=== PATIENT | male | born 1965 | race Caucasian/White ===

== ENCOUNTER 2018-07-20 10:42 | Observation (INO) | payer OTHER ==
--- NOTE | 2018-07-20 10:45 | ED ---
HPI Chest Pain - Allergy/Home Medications Allergies/Adverse Reactions: Allergies Allergy/AdvReac Type Severity Reaction Status Date / Time No Known Allergies Allergy Verified 07/20/18 10:46 PMH/Surg Hx/FS Hx/Imm Hx Previously Healthy: No Review of Systems Constitutional: Negative Eyes: Negative ENT: Negative Cardiovascular: Negative Respiratory: Negative Gastrointestinal: Negative Genitourinary: Negative Musculoskeletal: Negative Skin: Negative Neurological: Negative Psychological: Normal Physical Exam - Summary Physical Exam Summary: Alert, conversive, nontoxic appearing Skin: Warm, dry, no mottling, no rashes, no contusions HEENT: EOMI, PERRL, moist mucous membranes Neck: No masses on the neck, supple Respiratory: Clear to auscultation, breath sounds present, no rales, no rhonchi , no wheezes Cardiovascular: RRR, pulses are symmetrical in both lower and upper extremities Abdomen: Soft, non-tender Bowel Sounds: Present Musculoskeletal: No CVA tenderness, no obvious deformity, moving all extremities in a grossly normal manner Neurological: A&Ox3, CN II-XII Intact, moving all extremities symmetrically Psychiatric: Normal affect and mood Triage Information Reviewed: Yes Vital Signs Reviewed: Yes - Attestation Statements Document Initiated by Scribe: Yes Documenting Scribe: Alberto Hein Provider For Whom Scribe is Documenting (Include Credential): Justin Diaz MD Scribe Attestation: Alberto Thompson, scribed for Justin Diaz MD on 07/20/18 at 1048.
--- NOTE | 2018-07-20 10:50 | ED ---
Respiratory - HPI Summary HPI Summary: 53 y/o male presents to the ED c/o SOB for 4 days, worsening. Dyspnea at rest. Pt is audibly wheezing. Pt has a cough with CP and shooting pains to the spiritism with cough. Associated sx: [place], ABD pain in the R side feels "distended", bilateral LE edema, fevers. Pt does not use O2 at home. - History of Current Complaint Chief Complaint: EDRespiratoryDistress Stated Complaint: CHEST PAIN/SOB Hx Obtained From: Patient Onset/Duration: Lasting Days, Still Present Pain Intensity: 5 Character: Wheezing, Cough (Productive), Dyspnea at Rest Alleviating Factor(s): Nothing Associated Signs and Symptoms: Fever, SOB, Chest Pain, Edema, Wheezing, Chest Pain with Cough - Allergy/Home Medications Allergies/Adverse Reactions: Allergies Allergy/AdvReac Type Severity Reaction Status Date / Time No Known Allergies Allergy Verified 07/20/18 10:46 Home Medications: Home Medications Amphetamine MIXED SALT TAB* [Adderall TAB*] 30 mg PO DAILY 07/20/18 [History Confirmed 07/20/18] BuPROPion XL* [Bupropion XL*] 300 mg PO DAILY 07/20/18 [History Confirmed ] Naltrexone TAB* 50 mg PO DAILY 07/21/18 [History Confirmed 07/21/18] PMH/Surg Hx/FS Hx/Imm Hx Previously Healthy: No Cardiovascular History: Denies: Hx Congestive Heart Failure Respiratory History: Reports: Hx Pneumonia Infectious Disease History: No Infectious Disease History: Denies: Traveled Outside the [place] in Last 30 Days - Family History Known Family History: Positive: Unknown - Social History Occupation: Employed Full-time Lives: With Family Alcohol Use: Occasionally Review of Systems Positive: Fever Eyes: Negative ENT: Negative Positive: Chest Pain Positive: Shortness Of Breath, Cough, Other - wheezing Positive: Abdominal Pain Genitourinary: Negative Positive: Edema - pedal Skin: Negative Positive: Headache Psychological: Normal All Other Systems Reviewed And Are Negative: No Physical Exam - Summary Physical Exam Summary: Alert, conversive, nontoxic appearing Skin: Warm, dry, no mottling, no rashes, no contusions HEENT: EOMI, PERRL, moist mucous membranes Neck: No masses on the neck, supple Respiratory: Mild respiratory distress. Diffuse respiratory wheezing. Cardiovascular: RRR, pulses are symmetrical in both lower and upper extremities Abdomen: Soft, non-tender Bowel Sounds: Present Musculoskeletal: No CVA tenderness, no obvious deformity, moving all extremities in a grossly normal manner. Mild pedal edema noted. Neurological: A&Ox3, CN II-XII Intact, moving all extremities symmetrically Psychiatric: Normal affect and mood Triage Information Reviewed: Yes Vital Signs On Initial Exam: Initial Vitals Temp Pulse Resp BP Pulse Ox 100.4 F 110 24 167/88 95 07/20/18 10:42 07/20/18 10:42 07/20/18 10:42 07/20/18 10:42 07/20/18 10:42 Vital Signs Reviewed: Yes Diagnostics - Vital Signs Vital Signs Temp Pulse Resp BP Pulse Ox 07/20/18 10:42 100.4 F 110 24 167/88 95 - Laboratory Result Diagrams: 07/21/18 06:43 07/21/18 06:43 Lab Statement: Any lab studies that have been ordered have been reviewed, and results considered in the medical decision making process. - Radiology CXR Radiology Interpretation Completed By: Radiologist - BILATERAL INFILTRATES LEFT GREATER THAN RIGHT. - Additional Comments Diagnostic Additional Comments: EKG - 11:40 Sinus Tachycardia @ 104 BPM. Normal QRSD, QTC. Non specific ST T wave changes in I , aVL, V6. Normal axis. Disposition - Course Assessment/Plan: 53 y/o male c/o SOB for 4 days, worsening. Dyspnea at rest. Cough, CP with cough, fevers. Pt also c/o R side ABD pain. Breathing treatment given in ED course. EKG - 11:40 Sinus Tachycardia @ 104 BPM. Normal QRSD, QTC. Non specific ST T wave changes in I , aVL, V6. Normal axis. CXR shows BILATERAL INFILTRATES LEFT GREATER THAN RIGHT. Spoke with Dr. Brewer, who agreed to admit [place] [facility] [place] - Diagnoses Provider Diagnoses: COPD exacerbation, Right lower lobe pneumonia - Physician Notifications Discussed Care Of Patient With: Osito Brewer Time Discussed With Above Provider: 12:48 Instructed by Provider To: Admit As Inpatient Discharge - Sign-Out/Discharge Documenting (check all that apply): Patient Departure - Discharge Plan Condition: Stable Disposition: ADMITTED TO [facility] - Billing Disposition and Condition Condition: STABLE Disposition: Admitted to [facility] - Attestation Statements Document Initiated by Scribe: Yes Documenting Scribe: Alberto Hein Provider For Whom Scribe is Documenting (Include Credential): Nicky Diaz MD Scribe Attestation: I, Alberto Hein, scribed for Nicky Diaz MD on 07/22/18 at 1107. Scribe Documentation Reviewed: Yes Provider Attestation: The documentation as recorded by the Alberto lovelace accurately reflects the service I personally performed and the decisions made by me, Nicky Diaz MD
[2018-07-20] MEDS ORDERED: NS 0.9% 1000 ML* 1,000 ML IV ONE ×2 (11:09→13:12)
[2018-07-20] MEDS ORDERED: Magnesium Sulfate IV* 2 GM in NS 0.9% 100 ML* 100 ML IV ONE (11:10)
[2018-07-20] MEDS ORDERED: Ibuprofen TAB* 600 MG PO ONE (11:11)
[2018-07-20] MEDS ORDERED: Albuterol/Ipratropium NEB.SOL* Albuterol 2.5 MG/Ipratropium 0.5 MG 3 ML INH ONE ×2 (11:11→11:47)
[2018-07-20] MEDS ORDERED: methylPREDNISolone 125 MG* 2 ML VIAL IV ONE (11:11)
[2018-07-20] MEDS ORDERED: Acetaminophen TAB* 325 MG PO ONE (11:11)
[2018-07-20 11:36] LABS: ABS Basophils 0.1 10^3/ul (0-0.2); ABS Eosinophils 0.1 10^3/ul (0-0.6); ABS Lymphocytes 0.6 10^3/ul (1.0-4.8); ABS Monocytes 0.9 10^3/ul (0-0.8); ABS Nucleated RBC 0 10^3/ul; Eosinophil % 0.7 % (0-6); Hematocrit 38 % (42-52); Hemoglobin 13.3 g/dl (14.0-18.0); Lymphocyte % 6.7 % (25-47); Mean Corpuscular HGB Conc 35 g/dl (31-36); Mean Corpuscular Hemoglobin 35 pg (27-31); Mean Corpuscular Volume 101 fL (80-94); Mean Platelet Volume 7.9 um3 (7.4-10.4); Nucleated Red Blood Cells % 0; Platelet Count 211 10^3/ul (150-450); Red Blood Count 3.77 10^6/ul (4.00-5.40); Red Cell Distribution Width 14 % (10.5-15); White Blood Count 8.6 10^3/ul (3.5-10.8)
[2018-07-20 11:45] LABS: INR 1.11 (0.77-1.02)
[2018-07-20] MEDS ORDERED: Magnesium Sulfate 2 GM IV* 2 GM/50 ML BAG IV ONE (11:48)
[2018-07-20 11:55] LABS: EGFR Non-African American 74.1 (>60)
[2018-07-20] MEDS ORDERED: cefTRIAXone(*) 1 GM in NS 0.9% 50 ML* 50 ML IVPB ONE (12:26)
[2018-07-20] MEDS ORDERED: Azithromycin TAB* 250 MG PO ONE (12:26)
--- NOTE | 2018-07-20 12:35 | RAD ---
INDICATION: Fever wheezing and cough. COMPARISON: There are no relevant prior studies available for comparison. TECHNIQUE: A portable view of the chest was obtained. FINDINGS: Cardiac and mediastinal contours appear to be within normal limits. There are patchy infiltrates in the mid and lower lung bowens which are more prominent in the left lung. No pleural effusion is seen. IMPRESSION: BILATERAL INFILTRATES LEFT GREATER THAN RIGHT.
[2018-07-20] MEDS ORDERED: Acetaminophen TAB* 325 MG PO PRN (13:12)
[2018-07-20] MEDS ORDERED: Albuterol 2.5 MG/3 ML NEB.SOL* (0.083%) INH PRN ×2 (13:12→21:53)
[2018-07-20] MEDS ORDERED: NS 0.9% 1000 ML* 1,000 ML IV SCH (13:15)
[2018-07-20 14:44] LABS: Urine Appearance Clear; Urine Blood 1+ (Negative); Urine Color Yellow; Urine Ketones Negative (Negative); Urine Protein Negative (Negative); Urine Red Blood Cell Trace(0-2/hpf) (Absent); Urine Specific Gravity 1.011 (1.010-1.030); Urine Urobilinogen Negative (Negative); Urine White Blood Cell Trace(0-5/hpf) (Absent)
--- NOTE | 2018-07-20 15:03 | HP ---
CC: Dr. Santana * HISTORY AND PHYSICAL: DATE OF ADMISSION: 07/20/18 PRIMARY CARE PROVIDER: Dr. Santana ATTENDING PHYSICIAN WHILE IN HOSPITAL: Osito Brewer MD * (report dictated by Devan Adams NP) CHIEF COMPLAINT: 1. Cough. 2. Shortness of breath. HISTORY OF PRESENT ILLNESS: Mr. Pineda is a 53-year-old male patient. He carries a history of ADHD and depression. He comes into our ER today, stating last 5 days he had progressive worsening shortness of breath. He has had a cough that has been nonproductive. He just had said that he has been not feeling well. He has been aching particularly in his knees. He says this has been hurting. He says he has been having chills intermittently. He had a fever noted here. He denied having any nausea, vomiting, or abdominal pain. He has chest pain when he is coughing. He denies having any orthopnea or nocturnal dyspnea and denies having any weight gain. He says he has not had any recent sick contacts. He does admit to dyspnea on exertion and he does admit to having some shortness of breath. He presented to the ED today. He was evaluated and was found to have bilateral pneumonia based on chest x-ray. We were asked to evaluate for admission. PAST MEDICAL HISTORY: Significant for: 1. ADHD. 2. Depression. PAST SURGICAL HISTORY: Denied. HOME MEDICATIONS: Include: 1. Adderall 30 mg p.o. daily. 2. Bupropion 300 mg p.o. daily. I do see on [facility] that the patient was given a prescription for naltrexone [address] Santana. I have a call placed to him to clarify this. ALLERGIES TO MEDICATIONS: Include no known drug allergies. FAMILY HISTORY: He states both his parents in their 80s of old age. SOCIAL HISTORY: He does smoke 2 cigars a day. He states he drinks a 6 pack a day. He denied any recreational drug abuse to me. Surrogate decision maker is his significant other, Alice. REVIEW OF SYSTEMS: There is a documented fever here. He denied any significant weight change. There was no double vision. There was no ear discharge. He did admit to having a cough. Denied having any congestion or rhinorrhea. No sore throat. No thyroid enlargement. Denied having any chest pain, especially when he coughs. Denied having any abdominal pain. There was no nausea, no vomiting, no dysuria. There was no frequency, no seizure, no loss of consciousness. Review of 14 systems completed, all others negative. PHYSICAL EXAMINATION GENERAL: At this time, Mr. Pineda is a 53-year-old male patient. He is sitting in the ED stretcher. Does not appear to be in any acute distress. VITAL SIGNS: Blood pressure 132/79, pulse 98, respirations were 24, O2 saturation 93%, temperature initially was 100.4, it did go to 103. HEENT: Head: Atraumatic, normocephalic. Eyes: EOMs are intact. Sclerae are anicteric and not pale. NECK: Supple. Throat: Oral mucosa appears to be moist. No oropharyngeal erythema. LUNGS: He had wheezing noted bilaterally. Equal diaphragmatic expansion. HEART: Sounds S1, S2. He had a regular rate and rhythm. No murmurs, rubs, or gallops. ABDOMEN: Soft, flat, nontender. Bowel sounds are present. EXTREMITIES: Pulses were 2+ throughout. He had no peripheral edema. He is moving all 4 extremities with 5/5 strength. NEUROLOGIC: He is awake, alert, oriented x3. He had no gross focal deficits. SKIN: Intact. DIAGNOSTIC STUDIES/LABORATORY DATA: Labs today, WBC 8.6, RBC of 3.77, hemoglobin 13.3, hematocrit 38, platelet count of 211. The INR was 1.11. PTT is 30.4. Sodium was 129, potassium 3.7, chloride of 101, bicarb 19, BUN 12, creatinine 1.04, glucose 127, lactic 1.1, calcium 8.2, mag 1.9, total bili 0.4, AST 20, ALT 20, alk phos 60, albumin 3.6, TSH is 2.06. He had a chest x-ray obtained today. Under my review, I do appreciate bilateral infiltrate. Radiology read this as bilateral infiltrates, left greater than right. He had an EKG today. I do not have previous for comparison. Today, the EKG is showing a sinus tachycardia at a rate of 104. LVH is present. He had no ST elevation. He did have flatten T waves in lead 3 and AVF, again nonspecific T wave changes. Old medical records reviewed. ASSESSMENT AND PLAN: Mr. Pineda is a 53-year-old male patient coming into the ED today with complaints of cough, shortness of breath, not feeling well. On evaluation, he was found to have bilateral pneumonia. We were asked to evaluate for admission. He will be admitted under observation status for: 1. Pneumonia. At this point, I will go ahead and get a legionella antigen, strep pneumoniae antigen, sputum culture. He has a pretty significant wheeze on exam, so I will put him on steroids. We will continue him on nebulizers every 4 hours. P.r.n. albuterol has been ordered. We will continue Dulera. I have placed him on Rocephin and azithromycin. I have asked for 1 L of bolus. He did show signs of sepsis in the evidence that he had a fever of 103. He was tachycardiac and he is mildly tachypneic, but I do not see any signs of end- organ damage currently. We will continue to monitor. His lactic acid was stable and his blood cultures were sent by the ER. 2. Attention deficit hyperactivity disorder. Continue medications as prescribed. 3. Depression and anxiety. Continue medications as prescribed. 4. DVT prophylaxis. I will place the patient on heparin subcu. 5. Code status: Full code. 6. Fluid, electrolyte, nutrition: He can have a normal saline at 100 an hour for an additional liter. In addition to this, he will have a regular diet. TIME SPENT: Time spent on the admission was 60 minutes, greater than half of that time was spent [id number] with the patient, obtaining my history and physical, the other half of the time was spent going over the plan of care with the patient and implementing the plan of care. I did discuss the plan of care with my attending, Dr. Brewer, who is in agreement. DEVAN ADAMS, DARSHANA [id number]/[facility] #: [id number] AMANDA
[2018-07-20] MEDS: Albuterol/Ipratropium NEB.SOL* Albuterol 2.5 MG/Ipratropium 0.5 MG 3 ML INH SCH ×2 (15:07→19:34)
[2018-07-20] MEDS: predniSONE TAB* 20 MG PO SCH (15:17)
[2018-07-20] MEDS: Heparin VIAL(*) 5000 UNITS/ML VIAL (FIVE THOUSAND) SUBCUT SCH ×2 (15:17→23:23)
[2018-07-20] MEDS: Mometasone/Formoter 200/5 MDI INH SCH (19:34)
[2018-07-21] MEDS: Heparin VIAL(*) 5000 UNITS/ML VIAL (FIVE THOUSAND) SUBCUT SCH (05:37)
[2018-07-21 07:02] LABS: ABS Basophils 0 10^3/ul (0-0.2); ABS Eosinophils 0 10^3/ul (0-0.6); ABS Lymphocytes 0.4 10^3/ul (1.0-4.8); ABS Neutrophils 13.7 10^3/ul (1.5-7.7); ABS Nucleated RBC 0 10^3/ul; Eosinophil % 0 % (0-6); Hematocrit 39 % (42-52); Hemoglobin 13.6 g/dl (14.0-18.0); Lymphocyte % 2.6 % (25-47); Mean Corpuscular HGB Conc 35 g/dl (31-36); Mean Corpuscular Hemoglobin 35 pg (27-31); Mean Corpuscular Volume 101 fL (80-94); Mean Platelet Volume 7.7 um3 (7.4-10.4); Nucleated Red Blood Cells % 0; Platelet Count 237 10^3/ul (150-450); Red Blood Count 3.87 10^6/ul (4.00-5.40); Red Cell Distribution Width 14 % (10.5-15); White Blood Count 15.1 10^3/ul (3.5-10.8)
[2018-07-21 07:07] LABS: INR 1.03 (0.77-1.02)
[2018-07-21 07:24] LABS: EGFR Non-African American 83.3 (>60)
[2018-07-21] MEDS: Mometasone/Formoter 200/5 MDI INH SCH (07:48)
[2018-07-21 07:59] VITALS: BP 153/88
[2018-07-21] MEDS: predniSONE TAB* 20 MG PO SCH (08:29)
[2018-07-21] MEDS ORDERED: Amphetamine MIXED SALT TAB* 10 MG TAB PO SCH (09:00)
[2018-07-21] MEDS ORDERED: BuPROPion XL* 300 MG TAB.XL PO SCH (09:00)
[2018-07-21] MEDS ORDERED: cefTRIAXone VIAL(*) 1,000 MG in NS 0.9% 50 ML* 50 ML IVPB SCH (13:00)
[2018-07-21] MEDS ORDERED: Azithromycin IV(*) 500 MG in D5W 250 ML BAG* 250 ML IVPB SCH (13:30)
--- NOTE | 2018-07-22 05:39 | DS ---
CC: [facility] * DISCHARGE SUMMARY: DATE OF ADMISSION: 07/20/18 DATE OF DISCHARGE: 07/21/18 PRIMARY CARE PROVIDER: To be established with [facility]. PSYCHIATRIST: Dr. Santana. PRINCIPAL DIAGNOSIS: Bilateral pneumonia. SECONDARY DIAGNOSES: 1. Depression. 2. Attention deficit hyperactivity disorder. DISCHARGE MEDICATIONS: 1. Adderall 30 mg p.o. daily. 2. Bupropion 300 mg p.o. daily. 3. Naltrexone 50 mg p.o. daily. 4. Prednisone 40 mg p.o. daily x2 days, and 30 mg x2 days, and 20 mg x2 days, and 10 mg x2 days and stop. 5. Amlodipine 5 mg p.o. daily (noon). 6. Levofloxacin 500 mg p.o. daily x6 doses. 7. Albuterol 2 puffs inhaled q.4 hours p.r.n. shortness of breath. HOSPITAL COURSE: Mr. Pineda is a 53-year-old male, smoker of 2 cigars per day, who presents to the emergency room with complaints of cough and shortness of breath. The patient complained of 5 days of progressive worsening shortness of breath. He had a cough that has been nonproductive. He had been feeling unwell. In the ER, the patient was identified to have bilateral pneumonia on chest x-ray and for this, he was admitted to the hospitalist service. The patient states that on the day of discharge, he feels 1000% better. He states that he did not expect to improve as quickly as he did. He states that he does have some cough, but essentially no shortness of breath at this point. He feels like he can manage at home. The patient has no wheezing on exam. The patient will be discharged home to continue Levaquin x6 more days, a prednisone taper and will have an albuterol inhaler as needed for wheezing. The patient agrees to follow up in the [facility] for follow up as he does not have a primary care provider, but has only been following with a psychiatrist recently. On the day of discharge, the patient is awake, alert and oriented, sitting up in bed, in no acute distress. His vital signs revealed blood pressure of 153/88 , a pulse 71, respirations 14, temp 98.4, and an O2 sat of 96% on room air. His cardiac exam reveals a normal S1, S2 with a regular rate and rhythm. His lungs are clear bilaterally. Abdomen is soft, nontender, nondistended. FOLLOWUP CONCERNS: The patient is being discharged home today, 07/21/18. ACTIVITY LEVEL: As tolerated. DIET: Low-fat. CONDITION ON DISCHARGE: Stable. The patient is to follow up at [facility] on 07/23/18 at 10:30 a.m. The patient has been explained that he should return to the emergency room for any worsening shortness of breath or any other concerning symptoms. TIME SPENT: 25 minutes were spent discharging this patient. [id number]/[facility] #: [id number] MTDD
== END 2018-07-21 12:15 | disposition home or self-care (01) ==
LOC: ED 10:42 → MED 13:10 → INTOOBSV 13:10 → OBSVTOIN 07-21 11:00 → INTOOBSV 07-21 11:00
PROVIDERS: ADMIT Student in an Organized Health Care Education/Training Program; ATTEND Hospitalist
DX: F32.9 Major depressive disorder, single episode, unspecified (principal); F90.9 Attention-deficit hyperactivity disorder, unspecified type; R06.02 Shortness of breath; R07.9 Chest pain, unspecified; R50.9 Fever, unspecified; R06.2 Wheezing; R05 Cough
CPT/HCPCS: 36415; 71045; 80048; 80053; 81003; 81015; 83605; 83735; 84443; 85025; 85610; 85730; 87040; 87086; 87899; 93005; 94640; 99284; A9270-GY; G0378; J0456; J0696; J1644; J2930; J3475; J7512

== ENCOUNTER 2018-09-21 12:59 | Emergency (ER) | payer OTHER ==
[2018-09-21 13:19] VITALS: BP 196/119
--- NOTE | 2018-09-21 13:26 | UC ---
Shortness of Breath HPI - HPI Summary HPI Summary: Patient has had increasing shortness of breath for the past 2 months after being diagnosed with pneumonia. Over the past several weeks it has gotten significantly worse. He now complains of shortness of breath even at rest. He has some baseline swelling in his ankles but there is some question as to whether or not this is getting worse. He complains of orthopnea and is very easily dyspneic with very little exertion. He smokes a couple of cigars a day. No fever or CP. - History of Current Complaint Chief Complaint: UCRespiratory Stated Complaint: SOB Time Seen by Provider: 09/21/18 13:20 Hx Obtained From: Patient Onset/Duration: Gradual Onset, Lasting Weeks, Still Present Timing: Constant Current Severity: Moderate Dyspnea At: Rest Aggrevating Factors: Movement, Recumbent Position Alleviating Factors: Nothing Associated Signs & Symptoms: Positive: Cough (Nonproductive), Wheezing. Negative: Chest Pain Unrelated to Cough, Nasal Congestion - Allergy/Home Medications Allergies/Adverse Reactions: Allergies Allergy/AdvReac Type Severity Reaction Status Date / Time No Known Allergies Allergy Verified 09/21/18 13:12 PMH/Surg Hx/FS Hx/Imm Hx Cardiovascular History: Hypertension - Surgical History Surgical History: None - Family History Known Family History: Positive: Unknown - Social History Alcohol Use: Occasionally Alcohol Amount: a 6 pack a week Substance Use Type: None Smoking Status (MU): Current Every Day Smoker Type: Cigars Amount Used/How Often: a few cigars/ day - Immunization History Most Recent Influenza Vaccination: 2017 Most Recent Pneumonia Vaccination: pt not had pneumonia vaccine Review of Systems Constitutional: Fatigue Respiratory: Shortness Of Breath, Other - orthopnea Cardiovascular: Negative Gastrointestinal: Negative Genitourinary: Negative Musculoskeletal: Edema All Other Systems Reviewed And Are Negative: Yes Physical Exam Triage Information Reviewed: Yes Appearance: No Pain Distress, Obese, Other: - BREATHING HEAVILY Vital Signs: Initial Vital Signs Temp 98 F 09/21/18 13:15 Pulse 76 09/21/18 13:15 Resp 24 09/21/18 13:15 BP 196/119 09/21/18 13:15 Pulse Ox 93 09/21/18 13:15 Vital Signs Reviewed: Yes Eyes: Positive: Conjunctiva Clear ENT: Positive: Hearing grossly normal Neck: Positive: Supple Respiratory: Positive: Respiratory distress - INCREASED WOB, Decreased breath sounds - LEFT BASE Cardiovascular: Positive: Pulses Normal Abdomen Description: Positive: Soft, Distended - MILD DIFFUSE TENDER. Negative : CVA Tenderness (R), CVA Tenderness (L) Diagnostics - EKG Cardiac Rate: NL - 76BPM Cardiac Rhythm: Sinus: Normal Ectopy: None ST Segment: Normal Shortness of Breath Dx - Course Course Of Treatment: PT OFFERED TRANSPORT TO THE ED BY AMBULANCE BUT DECLINES. ADVISED THAT BY NOT TRAVELING IN A MONITORED SETTING HE COULD BE RISKING WORSENING OF HIS CONDITION THAT COULD POSE A THREAT TO HER LIFE, HEALTH AND MEDICAL SAFETY. HE VERBALIZES UNDERSTANDING AND CONTINUES TO DECLINE AMBULANCE TRANSFER. - Differential Dx/Diagnosis Provider Diagnoses: 1. SOB. 2. HYPERTENSIVE CRISIS Discharge - Sign-Out/Discharge Documenting (check all that apply): Patient Departure All imaging exams completed and their final reports reviewed: No Studies - Discharge Plan Condition: Guarded Disposition: TRANS HIGHER LVL OF CARE FAC Patient Education Materials: Hypertensive Crisis (ED), Shortness of Breath (ED) Referrals: Max MURPHY,Elder Hwang [Primary Care Provider] - If Needed Additional Instructions: GO DIRECTLY TO THE [facility] [place] FROM HERE FOR FURTHER EVALUATION. YOU HAVE DECLINED TRANSFER TO THE ED BY AMBULANCE. BE ADVISED THAT BY NOT TRAVELING IN A MONITORED SETTING YOU COULD BE RISKING WORSENING OF YOUR CONDITION THAT COULD POSE A THREAT TO YOUR LIFE, HEALTH AND MEDICAL SAFETY. - Billing Disposition and Condition Condition: GUARDED Disposition: Trans Higher Lvl of Care Fac
== END 2018-09-21 14:00 | disposition short-term general hospital (02) ==
LOC: UCEAST 12:59
DX: R06.02 Shortness of breath (principal); I10 Essential (primary) hypertension; F17.290 Nicotine dependence, other tobacco product, uncomplicated
CPT/HCPCS: 93005; 99211; G0463

== ENCOUNTER 2019-06-14 16:23 | Observation (INO) | payer SELFPAY ==
--- NOTE | 2019-06-14 17:43 | ED ---
Shortness of Breath - HPI Summary HPI Summary: Patient complains of progressive SOB 6 weeks. Denies fever, cough, sore throat , CP, N/V/D, abdominal pain, change in urine, change in BM. Patient has history of hypertension which is untreated. Patient also states history of left pleural effusion in August 2018 with 1.5 L drained from left lung. Patient states he feels like he has the same symptoms as then. Medical history is CHF, HTN, pleural effusion, prediabetic. Smoker for years, quit November 2018. Noncompliant with hypertension medication. - History of Current Complaint Chief Complaint: EDShortnessOfBreath Time Seen by Provider: 06/14/19 17:41 Hx Obtained From: Patient Onset/Duration: Gradual Onset, Lasting Weeks Current Severity: Moderate Dyspnea At: [facility] Associated Signs & Symptoms: Negative - Allergy/Home Medications Allergies/Adverse Reactions: Allergies Allergy/AdvReac Type Severity Reaction Status Date / Time No Known Allergies Allergy Verified 06/14/19 16:26 PMH/Surg Hx/FS Hx/Imm Hx Endocrine/Hematology History: Denies: Hx Diabetes Cardiovascular History: Reports: Hx Hypertension - no refills Denies: Hx Congestive Heart Failure Respiratory History: Reports: Hx Pneumonia Denies: Hx Asthma, Hx Chronic Obstructive Pulmonary Disease (COPD) History: Denies: Hx Renal Disease Sensory History: Denies: Hx Contacts or Glasses, Hx Hearing Aid Opthamlomology History: Denies: Hx Contacts or Glasses EENT History: Denies: Hx Deafness Neurological History: Denies: Hx Dementia Psychiatric History: Denies: Hx Autism Infectious Disease History: No Infectious Disease History: Denies: Traveled Outside the [place] in Last 30 Days - Family History Known Family History: Positive: Unknown Negative: Cardiac Disease, Hypertension, Diabetes - Social History Alcohol Use: Occasionally Alcohol Amount: a 6 pack a week Substance Use Type: Reports: None Smoking Status (MU): Current Every Day Smoker Type: Cigars Amount Used/How Often: a few cigars/ day Review of Systems Constitutional: Negative Eyes: Negative ENT: Negative Cardiovascular: Negative Positive: Shortness Of Breath Gastrointestinal: Negative Genitourinary: Negative Musculoskeletal: Negative Skin: Negative Neurological: Negative Psychological: Normal All Other Systems Reviewed And Are Negative: Yes Physical Exam - Summary Physical Exam Summary: Patient has expiratory wheezes bilaterally. No rales noticed. Regular rate and rhythm. Abdomen soft nontender. Mild pitting edema on bilateral extremities. Triage Information Reviewed: Yes Vital Signs On Initial Exam: Initial Vitals Temp Pulse Resp BP Pulse Ox 97.8 F 95 22 164/98 94 06/14/19 16:26 06/14/19 16:26 06/14/19 16:26 06/14/19 16:26 06/14/19 16:26 Vital Signs Reviewed: Yes Appearance: Positive: Well-Appearing Skin: Positive: Warm Head/Face: Positive: Normal Head/Face Inspection Eyes: Positive: Normal Neck: Positive: Supple Respiratory/Lung Sounds: Positive: Wheezes Cardiovascular: Positive: Normal Abdomen Description: Positive: Nontender Musculoskeletal: Positive: Normal Neurological: Positive: Normal Psychiatric: Positive: Normal AVPU Assessment: Alert - Amisha Coma Scale Best Eye Response: 4 - Spontaneous Best Motor Response: 6 - Obeys Commands Best Verbal Response: 5 - Oriented Coma Scale Total: 15 Diagnostics - Vital Signs Vital Signs Temp Pulse Resp BP Pulse Ox 06/14/19 16:26 97.8 F 95 22 164/98 94 - Laboratory Result Diagrams: 06/14/19 18:20 06/14/19 18:20 Lab Statement: Any lab studies that have been ordered have been reviewed, and results considered in the medical decision making process. Course/Dx - Course Course Of Treatment: Patient complains of progressive SOB 6 weeks. Denies fever, cough, sore throat, CP, N/V/D, abdominal pain, change in urine, change in BM. Patient has history of hypertension which is untreated. Patient also states history of left pleural effusion in August 2018 with 1.5 L drained from left lung. Patient states he feels like he has the same symptoms as then. Medical history is CHF, HTN, pleural effusion, prediabetic. Smoker for years, quit November 2018. Initial respiratory rate 22, initial O2 sats 94%. Improved after DuoNeb 2. Chest x-ray unremarkable. EKG sinus rhythm, no change from prior. CTA chest negative. BNP 157. Potassium 3.4. Patient given 40 meq potassium by mouth. Lactic 4.6. Lactic resolved after 1 L normal saline to 1.7. Initial BP readings within normal limits, then elevated into SBP 200s. Hydralazine 5 mg IV administered twice with no significant improvement. Labetalol 20 mg administered with no significant change in blood pressure. - Diagnoses Provider Diagnoses: COPD exacerbation, Hypertensive urgency Discharge - Sign-Out/Discharge Documenting (check all that apply): Patient Departure Patient Received Moderate/Deep Sedation with Procedure: No - Discharge Plan Condition: Fair Disposition: ADMITTED TO [facility] Prescriptions: predniSONE TAB* [Deltasone 20 MG TAB*] 40 mg PO DAILY 5 Days #10 tab Referrals: Max MURPHY,Elder Hwang [Primary Care Provider] - - Billing Disposition and Condition Condition: FAIR Disposition: Admitted to [facility]
[2019-06-14] MEDS ORDERED: Albuterol/Ipratropium NEB.SOL* Albuterol 2.5 MG/Ipratropium 0.5 MG 3 ML INH ONE (17:46)
[2019-06-14 18:36] LABS: ABS Basophils 0.1 10^3/ul (0-0.2); ABS Eosinophils 0.4 10^3/ul (0-0.6); ABS Lymphocytes 1.2 10^3/ul (1.0-4.8); ABS Monocytes 0.5 10^3/ul (0-0.8); ABS Neutrophils 5.1 10^3/ul (1.5-7.7); Hematocrit 40 % (42-52); Lymphocyte % 16.2 %; Mean Corpuscular HGB Conc 35 g/dL (31-36); Mean Corpuscular Hemoglobin 38 pg (27-31); Mean Corpuscular Volume 108 fL (80-94); Mean Platelet Volume 7.6 fL (7.4-10.4); Nucleated Red Blood Cells % 0.1; Platelet Count 292 10^3/uL (150-450); Red Blood Count 3.68 10^6 /uL (4.18-5.48); Red Cell Distribution Width 15 % (10-15); White Blood Count 7.3 10^3/uL (3.5-10.8)
[2019-06-14 18:47] LABS: Albumin 3.8 g/dL (3.2-5.2); Albumin/Globulin Ratio 1.4 (1-3); BUN/Creatinine Ratio 9.7 (8-20); C Reactive Protein 7.81 mg/L (<8.01); EGFR African American 81.2 (>60); EGFR Non-African American 67.1 (>60); Globulin 2.8 g/dL (2-4); Potassium 3.4 mmol/L (3.5-5.0); Total Bilirubin 0.3 mg/dL (0.2-1.0); Total Protein 6.6 g/dL (6.4-8.9)
[2019-06-14] MEDS ORDERED: Albuterol 0.5% CONC NEB.SOL* 5 MG/ML 20 ml BOT INH ONE (18:47)
[2019-06-14] MEDS ORDERED: predniSONE TAB* 20 MG PO ONE (18:48)
[2019-06-14 18:49] LABS: Troponin I 0.02 ng/mL (<0.04)
[2019-06-14] MEDS ORDERED: NS 0.9% 1000 ML** 1,000 ML IV ONE (19:49)
[2019-06-14] MEDS ORDERED: Iohexol 350* (CONTRAST) 500 ML MDV IV ONE (20:03)
[2019-06-14] MEDS ORDERED: Iodixanol* (CONTRAST) 320 MG/ML 100 ML SDV IV ONE (21:05)
[2019-06-14] MEDS ORDERED: hydrALAZINE IV* 20 MG/ML VIAL IV SLOW PU ONE (22:14)
[2019-06-15] MEDS ORDERED: hydrALAZINE IV* 20 MG/ML VIAL IV SLOW PU ONE ×2 (00:43→05:42)
[2019-06-15] MEDS ORDERED: Labetalol IV* 5 MG/ML 20 ML VIAL IV PUSH ONE (01:49)
[2019-06-15] MEDS ORDERED: Potassium Chlor TAB* 20 MEQ TAB.ER PO ONE (01:52)
[2019-06-15] MEDS ORDERED: Albuterol HFA INHALER* 8 gm MDI INH ONE (02:33)
--- NOTE | 2019-06-15 05:41 | HP ---
History of Present Illness - History of Present Illness Reason for Visit: Shortness of breath. History of Present Illness: 54yoM with PMHx CHF, HTN, here due to shortness of breathx6 weeks, rib pain. His breathing has gotten so bad that he can't manage himself so came to ER. Denies any chest pain. Patient stopped taking his BP medications as he says it doesn't work. Past Medical History Obesity with a BMI of 35. Depression. ADHD. Congestive Heart failure s/p 1.5L taken out in August 2018. HTN No diagnosis of COPD. Past Surgical History None Family History Mother and Father were both in their late 70s when they . No medical problems. Social History The patient quit smoking in August 2018 prior to that used to smoke 2 to 3 cigars a day. He drinks 6 beers a week. He denies any recreational drug use. 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 Surrogate decision maker is his significant other, Alice Marte. Phone number is [phone]. Review of Systems - Measurements Intake and Output: Intake and Output Last 24 Hours 06/12/19 06/13/19 06/14/19 06/15/19 06:59 06:59 06:59 06:59 Weight 274 lb - Review of Systems Constitutional Symptoms: Positive: Weight Gain Negative: Fever Dermatology: Negative: Rash Pulmonary: Positive: Cough, Wheezing Cardiology: Positive: Shortness of Breath, Swelling of Ankles, Edema Negative: Chest Pain, Palpitations Gastroenterology: Negative: Abdominal Pain, Nausea, Vomiting Objective Vital Signs - 8 hr 06/14/19 06/14/19 06/14/19 21:41 21:57 22:00 Pulse Rate 78 82 75 Respiratory 19 24 21 Rate Blood Pressure 204/115 238/146 (mmHg) O2 Sat by Pulse 94 96 95 Oximetry 06/14/19 06/14/19 06/14/19 22:12 22:34 22:51 Pulse Rate 77 81 80 Respiratory 21 26 Rate Blood Pressure 215/131 223/133 (mmHg) O2 Sat by Pulse 91 96 96 Oximetry 06/14/19 06/14/19 06/14/19 23:00 23:12 23:14 Pulse Rate 78 79 88 Respiratory 21 22 18 Rate Blood Pressure 192/108 (mmHg) O2 Sat by Pulse 94 94 96 Oximetry 06/15/19 06/15/19 06/15/19 00:00 00:12 00:29 Pulse Rate 75 81 73 Respiratory 26 17 19 Rate Blood Pressure 202/119 205/114 (mmHg) O2 Sat by Pulse 96 93 94 Oximetry 06/15/19 06/15/19 06/15/19 01:00 01:12 01:21 Pulse Rate 67 69 70 Respiratory 26 22 23 Rate Blood Pressure 196/124 183/128 (mmHg) O2 Sat by Pulse 95 95 95 Oximetry 06/15/19 06/15/19 06/15/19 01:34 01:42 02:00 Pulse Rate 69 72 70 Respiratory 23 24 29 Rate Blood Pressure 191/115 197/120 (mmHg) O2 Sat by Pulse 95 95 96 Oximetry 06/15/19 06/15/19 06/15/19 02:13 02:40 02:56 Pulse Rate 72 73 73 Respiratory 21 20 24 Rate Blood Pressure 181/105 198/110 181/99 (mmHg) O2 Sat by Pulse 94 96 94 Oximetry 06/15/19 06/15/19 06/15/19 03:00 03:10 03:25 Pulse Rate 74 75 72 Respiratory 24 22 24 Rate Blood Pressure 180/97 195/96 (mmHg) O2 Sat by Pulse 94 94 95 Oximetry 06/15/19 06/15/19 06/15/19 03:40 03:55 04:00 Pulse Rate 72 74 70 Respiratory 26 22 22 Rate Blood Pressure 174/100 184/108 (mmHg) O2 Sat by Pulse 96 95 92 Oximetry 06/15/19 06/15/19 06/15/19 04:10 04:26 04:41 Pulse Rate 68 68 67 Respiratory 22 21 20 Rate Blood Pressure 170/105 173/104 184/92 (mmHg) O2 Sat by Pulse 96 95 94 Oximetry Oxygen Devices in Use Now: None Eyes: No Scleral Icterus, PERRLA Ears/Nose/Mouth/Throat: NL Teeth, Lips, Gums, Clear Oropharnyx, Mucous Membranes Moist Neck: Trachea Midline Respiratory: - - Diffuse wheezing. Cardiovascular: NL Sounds; No Murmurs; No JVD, RRR Abdominal: NL Sounds; No Tenderness; No Distention - Obese abdomen. Extremities: - - Trace bipedal edema. Skin: No Rash or Ulcers Neurological: Alert and Oriented x 3, NL Sensation, NL Gait, NL Muscle Strength and Tone Nutrition: Taking PO's Result Diagrams: 06/14/19 18:20 06/14/19 18:20 Diagnostic Imaging: CT Angiography Chest With Contrast IMPRESSION: 1. No evidence of pulmonary embolic disease in the main, segmental and proximal subsegmental branches. However the distal subsegmental pulmonary arteries are difficult to assess. 2. No pulmonary consolidation. Linear opacities located in lung bases which may represent areas of atelectasis and/or scarring. 3. Ectasia of the ascending aorta with an AP length of 4.1 cm. Recommend followup study in 6 months to a year. Previous CT study from 09/21/2018 shows the AP length of the ascending aorta to measure approximately 4.1 cm. 4. Resolution of the left pleural effusion and associated areas of atelectasis. EKG Data: Shows sinus rhythm at 84bpm. When compared to previous EKG anterior lead ST changes have resolved. Assess/Plan/Problems-Billing Assessment: - Patient Problems (1) Respiratory failure Current Visit: Yes Status: Acute Code(s): J96.90 - RESPIRATORY FAILURE, UNSP , UNSP W HYPOXIA OR HYPERCAPNIA SNOMED Code(s): 207383943 Comment: Likely COPD exacerbation given the CT read negative for any CHF or PE. Start steroids, nebs, azithromycin. Will avoid fluroquinolones given aortic aneurysm. Pulmonary consultation for possible PFT. (2) Hypertensive urgency Current Visit: Yes Status: Acute Code(s): I16.0 - HYPERTENSIVE URGENCY SNOMED Code(s): 569538725 Comment: Start IV hydralazine PRN for SBP>160. Restart Home meds. (3) Ascending aorta dilatation Current Visit: Yes Status: Acute Code(s): I77.810 - THORACIC AORTIC ECTASIA SNOMED Code(s): 142049794 Comment: As noted in CT scan. Repeat CT Scan in 6 months. (4) Heart failure Current Visit: Yes Status: Acute Code(s): I50.9 - HEART FAILURE, UNSPECIFIED SNOMED Code(s): 78611487 Comment: Currently not in failure. Monitor for now. (5) DVT prophylaxis Current Visit: No Status: Acute Code(s): TRU0697 - SNOMED Code(s): 214310475 Comment: SCDs.
[2019-06-15] MEDS ORDERED: hydrALAZINE IV* 20 MG/ML VIAL IV SLOW PU PRN (06:58)
[2019-06-15] MEDS ORDERED: Enoxaparin(*) 40 MG/0.4 ML SYR SUBCUT SCH (07:00)
[2019-06-15] MEDS ORDERED: amLODIPine TAB* 5 MG PO SCH (07:00)
[2019-06-15] MEDS ORDERED: Albuterol/Ipratropium NEB.SOL* Albuterol 2.5 MG/Ipratropium 0.5 MG 3 ML INH PRN ×2 (07:01→19:59)
[2019-06-15 07:38] LABS: ABS Lymphocytes 0.6 10^3/ul (1.0-4.8); ABS Monocytes 0.3 10^3/ul (0-0.8); ABS Neutrophils 8.8 10^3/ul (1.5-7.7); Hematocrit 40 % (42-52); Hemoglobin 14.3 g/dL (14.0-18.0); Lymphocyte % 5.7 %; Mean Corpuscular HGB Conc 36 g/dL (31-36); Mean Corpuscular Hemoglobin 38 pg (27-31); Mean Corpuscular Volume 108 fL (80-94); Mean Platelet Volume 7.7 fL (7.4-10.4); Platelet Count 290 10^3/uL (150-450); Red Blood Count 3.74 10^6 /uL (4.18-5.48); Red Cell Distribution Width 14 % (10-15); White Blood Count 9.8 10^3/uL (3.5-10.8)
[2019-06-15 07:50] LABS: BUN/Creatinine Ratio 13.8 (8-20); Calcium 8.7 mg/dL (8.6-10.3); EGFR African American 100.5 (>60)
[2019-06-15] MEDS ORDERED: Azithromycin 500 mg/250 ml NS 500 MG/250 ML BAG IVPB SCH (08:00)
[2019-06-15] MEDS: methylPREDNISolone SOD 40 MG* 1 ML VIAL IV SCH ×2 (08:11→21:35)
[2019-06-15] MEDS ORDERED: Isosorbide Mononitrate ER TAB* 60 MG PO SCH (09:00)
[2019-06-15] MEDS: BuPROPion XL* 300 MG TAB.XL PO SCH (10:28)
[2019-06-15] MEDS: Azithromycin 500 mg/250 ml NS 500 MG/250 ML BAG IVPB SCH (10:28)
[2019-06-15] MEDS: Losartan TAB* 25 MG PO SCH (12:43)
[2019-06-15] MEDS: Nicotine PATCH 14 MG/24 HR* PATCH TRANSDERM SCH (12:43)
[2019-06-15] MEDS ORDERED: Perflutren Lipid Microsphere* 3 ML VIAL ONE (14:26)
[2019-06-15] MEDS ORDERED: Acetaminophen TAB* 325 MG PO PRN (15:24)
[2019-06-15] MEDS: Amphetamine MIXED SALT TAB* 10 MG TAB PO SCH (15:43)
--- NOTE | 2019-06-15 16:16 | ECHO ---
*[facility]* [place] [address] Fax #: [phone] Transthoracic Echocardiogram Patient: Tomas Pineda : 1965 Study Date: 06/15/2019 Age: 54 Gender: M HR: 70 bpm Height: 70 in /177.8 cm BSA: 2.39 m^2 Weight: 273.4 lb /124.3 kg BMI: 39.3 kg/m^2 *Sex Worker Or Escort: * Linda Ayoub RD *Referring Physician: * Hayley Wolff *Reading Physician: * Bianca Castillo MD Indications: SOB. Congestive Heart Failure. History: Obesity. Risk factors: Current tobacco use. Hypertension. Conclusions Summary: 1. Procedure narrative: Image quality was suboptimal. 2. Left ventricle: The cavity size is normal. Wall thickness is mildly increased. Systolic function is vigorous. The estimated ejection fraction is 60-65%. 3. Right ventricle: Systolic function is normal. 4. All valves show good functioin. 5. Tricuspid valve: There is no significant regurgitation, trace. 6. Compared with prior echocardiogram of 09/22/18, ejection fraction is stable, no longer see right ventricle dillatation and right ventricle function no longer recuded. Prior study showed trace AI, mitral regurgitation, tricuspid regurgitation. Aorta previously mildly dilated. Study data: Transthoracic echocardiogram. Procedure: Transthoracic echocardiography was performed. Image quality was suboptimal. Intravenous Definity , 4 mlswas administered. Image enhancement administered by Complete 2D, spectral Doppler, and color flow Doppler. Patient status: Inpatient. Patient room number: 410-1. Rhythm: Normal sinus rhythm. Findings Left ventricle: The cavity size is normal. Wall thickness is mildly increased. Systolic function is vigorous. The estimated ejection fraction is 60-65%. Wall motion is normal; there are no regional wall motion abnormalities. There is no consistent Doppler evidence of clinically significant diastolic dysfunction. Right ventricle: Not well visualized. The cavity size is normal. Wall thickness is normal. Systolic function is normal. Ventricular septum: Well visualized. Left atrium: Well visualized. The atrium is normal in size. Right atrium: Well visualized. The atrium is normal in size. Atrial septum: Well visualized. Mitral valve: Well visualized. The leaflets are mildly thickened. No echocardiographic evidence for prolapse. There is no evidence of stenosis. There is no significant regurgitation. Aortic valve: Not well visualized. The valve is trileaflet. The leaflets are normal thickness. There is no evidence of stenosis. There is no significant regurgitation. Tricuspid valve: Well visualized. The leaflets are normal thickness. There is no evidence of stenosis. There is no significant regurgitation, trace. Pulmonic valve: Well visualized. The leaflets are normal thickness. There is no evidence of stenosis. There is no significant regurgitation. Aorta: The aorta is not visualized. Pericardium: There is no pericardial effusion. No evidence of pleural fluid accumulation. Pulmonary arteries: Not well visualized. The main pulmonary artery is normal-sized. Systemic veins: Well visualized. Pulmonary veins: Visualization of the pulmonary venous anatomy is incomplete, but a significant abnormality is unlikely. Measurements Left ventricle Value Ref Right atrium Value Ref FOREIGN, LAX 4.8 cm 4.2 - SI dim, ES 5.2 cm 3.4 - 5.3 5.8 ML dim, ES, A4C 4.3 cm 2.6 - 4.4 ESD, LAX 3.8 cm 2.5 - SI dim, ES, A4C (H) 5.8 cm 3.4 - 5.3 4.0 SI dim/bsa, ES, A4C 2.4 cm/m^2 1.8 - 3.0 FS, LAX (L) 22 % 25 - 43 PW, ED, LAX (H) 1.2 cm 0.6 - Aortic valve Value Ref 1.0 Lee diam, ED 2.2 cm --------- FS (L) 22 % 25 - 43 Lee diam/bsa, ED 0.9 cm/m^2 --------- Mid-wall FS 9 % -------- Peak v, S 1.87 m/sec --------- PW, ED (H) 1.2 cm 0.6 - VTI, S 33.2 cm --------- 1.0 Mean grad, S 7.0 mm Hg --------- PW/ID, ED 0.26 -------- Peak grad, S 14.0 mm Hg --------- E', lat lee, TDI (L) 6.6 cm/sec >=10.0 LVOT/AV, VTI ratio 0.92 - -------- E/e', lat lee, TDI 13 -------- E', med lee, TDI (L) 6.0 cm/sec >=7.0 Mitral valve Value R ef E/e', med lee, TDI 15 -------- Peak E 0.88 m/sec ---- ----- E', avg, TDI 6.3 cm/sec -------- Peak A 0.83 m/sec ---- ----- E/e', avg, TDI 14 <=14 Decel time 169 ms - -------- Peak grad, D 3.1 mm Hg --------- LVOT Value Ref Peak E/A ratio 1.1 --------- Peak dominic, S 1.55 m/sec -------- VTI, S 30.6 cm -------- Pulmonic valve Value Ref Peak grad, S 10 mm Hg -------- Peak v, S 1.32 m/sec --------- Mean grad, S 5 mm Hg -------- Peak grad, S 7.0 mm Hg --------- Ventricular septum Value Ref Aortic root Value Ref IVS, ED (H) 1.4 cm 0.6 - Root diam 3.5 cm <4.4 1.0 Root max diam, ED 3.5 cm <4.4 Right ventricle Value Ref Ascending aorta Value Ref FOREIGN, LAX 3.6 cm -------- AAo AP diam, S 3.3 cm --------- FOREIGN minor ax, A4C 2.9 cm 1.9 - AAo AP diam/bsa, S 1.4 cm/m^2 --------- mid 3.5 Left atrium Value Ref ML dim, A4C 3.9 cm -------- SI dim, A4C 5.7 cm -------- Legend: (L) and (H) jose values outside specified reference range. Prepared and electronically signed by Bianca Castillo MD 06/15/2019 16:16
--- NOTE | 2019-06-15 18:01 | PN ---
Subjective Date of Service: 06/15/19 Interval History: Patient sitting in bed on assessment. He is visibly agitated as evidence by pressure speech and raising his voice. He reports that he does not believe that there is no fluid on his lungs as he feels the same as he did in 2018 and at that time he had 1.5 L take from lung. Discussed results of CTA and patient demanding to see Dr Palacio. Patient reports shortness of breath at rest and with exertion. It should be mentioned patient reports smoking 5 to 6 cigars a day. Reports occasional nonproductive cough. Denies chest pain or palpitations. Denies fever or chills. Denies anxiety explaining he is only anxious because we all "ask the same questions". Objective Active Medications: Acetaminophen (Tylenol Tab*) 650 mg PO Q4H PRN PRN Reason: PAIN Last Admin: 06/15/19 15:43 Dose: 650 mg Albuterol/Ipratropium (Duoneb (Albuterol 2.5 Mg/Ipratropium 0.5 Mg)) 1 neb INH Q4H PRN PRN Reason: SOB/WHEEZING Amlodipine Besylate (Norvasc Tab*) 10 mg PO DAILY@0900 [facility] Amphetamine/Dextroamphetamine (Adderall Tab*) 30 mg PO BID@0700,1500 [facility] Last Admin: 06/15/19 15:43 Dose: 30 mg Bupropion HCl (Bupropion Xl*) 300 mg PO DAILY [facility] Last Admin: 06/15/19 10:28 Dose: 300 mg Furosemide (Lasix Tab*) 20 mg PO DAILY [facility] Hydralazine HCl (Apresoline Iv*) 5 mg IV SLOW PU Q6H PRN PRN Reason: Systolic Bp Greater Than:160 Azithromycin (Zithromax 500 Mg/250 Ml) 500 mg in 250 mls @ 250 mls/hr IVPB Q24HR@1000 [facility] Last Admin: 06/15/19 10:28 Dose: 250 mls/hr Losartan Potassium (Cozaar Tab*) 50 mg PO DAILY [facility] Last Admin: 06/15/19 12:43 Dose: 50 mg Methylprednisolone Sodium Succinate (Solu-Medrol 40 Mg) 40 mg IV Q12H [facility] Last Admin: 06/15/19 08:11 Dose: 40 mg Nicotine (Nicotine Patch 14 Mg/24 Hr*) 1 patch TRANSDERM DAILY [facility] Last Admin: 06/15/19 12:43 Dose: 1 patch Pharmacy Profile Note (Nicotine Patch Removal Note*) 1 note FOLLOW UP 2100 [facility] Pneumococcal Polyvalent Vaccine (Pneumococcal Vac 23-Polyvalent*) 0.5 ml IM .ONCE ONE Stop: 06/16/19 09:01 Vital Signs - 8 hr 06/15/19 06/15/19 11:15 17:12 Temperature 97.1 F 97.3 F Pulse Rate 73 72 Respiratory 22 24 Rate Blood Pressure 147/76 166/89 (mmHg) O2 Sat by Pulse 97 98 Oximetry Oxygen Devices in Use Now: None Appearance: NAD Eyes: No Scleral Icterus Ears/Nose/Mouth/Throat: Clear Oropharnyx, Mucous Membranes Moist Neck: NL Appearance and Movements; NL JVP Respiratory: Symmetrical Chest Expansion and Respiratory Effort, Clear to Auscultation Cardiovascular: NL Sounds; No Murmurs; No JVD, RRR, No Edema Abdominal: NL Sounds; No Tenderness; No Distention Lymphatic: No Cervical Adenopathy Extremities: No Clubbing, Cyanosis Skin: No Rash or Ulcers Neurological: Alert and Oriented x 3 Nutrition: Taking PO's Result Diagrams: 06/15/19 07:28 06/15/19 07:28 Additional Lab and Data: Laboratory Results - last 24 hr 06/14/19 06/14/19 06/14/19 18:20 18:20 18:20 WBC 7.3 RBC 3.68 L Hgb 14.0 Hct 40 L MCV 108 H MCH 38 H MCHC 35 RDW 15 Plt Count 292 MPV 7.6 Neut % (Auto) 70.4 Lymph % (Auto) 16.2 [place] % (Auto) 7.2 Eos % (Auto) 5.0 Baso % (Auto) 1.2 Absolute Neuts (auto) 5.1 Absolute Lymphs (auto) 1.2 Absolute Monos (auto) 0.5 Absolute Eos (auto) 0.4 Absolute Basos (auto) 0.1 Absolute Nucleated RBC 0.0 Nucleated RBC % 0.1 Sodium 139 Potassium 3.4 L Chloride 102 Carbon Dioxide 26 Anion Gap 11 BUN 11 Creatinine 1.13 Est GFR ( Amer) 81.2 Est GFR (Non-Af Amer) 67.1 BUN/Creatinine Ratio 9.7 Glucose 112 H Lactic Acid 4.6 H* Calcium 9.0 Total Bilirubin 0.30 AST 23 ALT 33 Alkaline Phosphatase 85 Troponin I 0.02 C-Reactive Protein 7.81 B-Natriuretic Peptide Total Protein 6.6 Albumin 3.8 Globulin 2.8 Albumin/Globulin Ratio 1.4 06/14/19 06/15/19 06/15/19 18:20 00:02 07:28 WBC 9.8 RBC 3.74 L Hgb 14.3 Hct 40 L MCV 108 H MCH 38 H MCHC 36 RDW 14 Plt Count 290 MPV 7.7 Neut % (Auto) 90.6 Lymph % (Auto) 5.7 [place] % (Auto) 3.4 Eos % (Auto) 0.0 Baso % (Auto) 0.3 Absolute Neuts (auto) 8.8 H Absolute Lymphs (auto) 0.6 L Absolute Monos (auto) 0.3 Absolute Eos (auto) 0.0 Absolute Basos (auto) 0.0 Absolute Nucleated RBC 0.0 Nucleated RBC % 0.0 Sodium Potassium Chloride Carbon Dioxide Anion Gap BUN Creatinine Est GFR ( Amer) Est GFR (Non-Af Amer) BUN/Creatinine Ratio Glucose Lactic Acid 1.7 Calcium Total Bilirubin AST ALT Alkaline Phosphatase Troponin I C-Reactive Protein B-Natriuretic Peptide 157 H Total Protein Albumin Globulin Albumin/Globulin Ratio 06/15/19 07:28 WBC RBC Hgb Hct MCV MCH MCHC RDW Plt Count MPV Neut % (Auto) Lymph % (Auto) [place] % (Auto) Eos % (Auto) Baso % (Auto) Absolute Neuts (auto) Absolute Lymphs (auto) Absolute Monos (auto) Absolute Eos (auto) Absolute Basos (auto) Absolute Nucleated RBC Nucleated RBC % Sodium 138 Potassium 4.0 Chloride 107 Carbon Dioxide 24 Anion Gap 7 BUN 13 Creatinine 0.94 Est GFR ( Amer) 100.5 Est GFR (Non-Af Amer) 83.0 BUN/Creatinine Ratio 13.8 Glucose 135 H Lactic Acid Calcium 8.7 Total Bilirubin AST ALT Alkaline Phosphatase Troponin I C-Reactive Protein B-Natriuretic Peptide Total Protein Albumin Globulin Albumin/Globulin Ratio Microbiology and Other Data: . Diagnostic Imaging: CT Angiography Chest With Contrast IMPRESSION: 1. No evidence of pulmonary embolic disease in the main, segmental and proximal subsegmental branches. However the distal subsegmental pulmonary arteries are difficult to assess. 2. No pulmonary consolidation. Linear opacities located in lung bases which may represent areas of atelectasis and/or scarring. 3. Ectasia of the ascending aorta with an AP length of 4.1 cm. Recommend followup study in 6 months to a year. Previous CT study from 09/21/2018 shows the AP length of the ascending aorta to measure approximately 4.1 cm. 4. Resolution of the left pleural effusion and associated areas of atelectasis. EKG Data: Shows sinus rhythm at 84bpm. When compared to previous EKG anterior lead ST changes have resolved. Assess/Plan/Problems-Billing Assessment: 54 yr old male with pmh of obesity, depression, adhd, chf, htn, no official diagnosis of COPD; who presented to ed with sob x 6 weeks - Patient Problems (1) SOB (shortness of breath) Comment: - Suspected secondary to COPD exacerbation although patient has never been officially diagnosed. - Per [employer] patient was referred to Dr Palacio in 2018 after hospitalization and he did see her, but did not follow up and did not have PFTs completed. - Cont steriods, abx, nebs - Smoking cessation (2) COPD (chronic obstructive pulmonary disease) Comment: - See above (3) Noncompliance Comment: - Patient reports he does not take his BP medications because "they don't work" and he also stopped prescribed inhalers as they also did not work. - Discussed importance of complaince (4) CHF (congestive heart failure) Comment: - Hx of CHF and pleural effusion - BMP 157 - Echo ordered (5) HTN (hypertension) Current Visit: No Status: Acute Code(s): I10 - ESSENTIAL (PRIMARY) HYPERTENSION SNOMED Code(s): 45202159 Comment: - See above (6) DVT prophylaxis Comment: SCDs. Attending: Cristobal Oconnell
[2019-06-15 18:09] LABS: Urine Benzodiazepine Screen None Detected (None Detect); Urine Opiates Screen None Detected (None Detect)
[2019-06-15] MEDS ORDERED: Albuterol/Ipratropium NEB.SOL* Albuterol 2.5 MG/Ipratropium 0.5 MG 3 ML INH SCH (19:00)
[2019-06-15] MEDS ORDERED: Metoprolol Tartrate TAB* 25 MG PO SCH ×2 (21:00)
[2019-06-15] MEDS ORDERED: Nicotine Patch Removal NOTE FOLLOW UP SCH (21:00)
[2019-06-15] MEDS ORDERED: Nicotine* 2MG (FRUIT FLAVOR) GUM PO PRN (21:01)
[2019-06-16 08:01] LABS: ABS Lymphocytes 0.8 10^3/ul (1.0-4.8); ABS Monocytes 0.5 10^3/ul (0-0.8); ABS Neutrophils 10.2 10^3/ul (1.5-7.7); Hematocrit 39 % (42-52); Hemoglobin 13.5 g/dL (14.0-18.0); Lymphocyte % 6.7 %; Mean Corpuscular HGB Conc 34 g/dL (31-36); Mean Corpuscular Hemoglobin 37 pg (27-31); Mean Corpuscular Volume 109 fL (80-94); Platelet Count 283 10^3/uL (150-450); Red Blood Count 3.62 10^6 /uL (4.18-5.48); Red Cell Distribution Width 15 % (10-15); White Blood Count 11.5 10^3/uL (3.5-10.8)
[2019-06-16 08:29] LABS: BUN/Creatinine Ratio 17.5 (8-20); Calcium 8.6 mg/dL (8.6-10.3); EGFR African American 96.9 (>60); EGFR Non-African American 80.1 (>60); Potassium 4.2 mmol/L (3.5-5.0)
[2019-06-16] MEDS: Nicotine PATCH 14 MG/24 HR* PATCH TRANSDERM SCH ×2 (08:30→12:24)
[2019-06-16] MEDS: BuPROPion XL* 300 MG TAB.XL PO SCH (08:32)
[2019-06-16] MEDS: methylPREDNISolone SOD 40 MG* 1 ML VIAL IV SCH (08:32)
[2019-06-16] MEDS: Losartan TAB* 25 MG PO SCH (08:32)
[2019-06-16] MEDS: Amphetamine MIXED SALT TAB* 10 MG TAB PO SCH (08:41)
[2019-06-16 08:44] VITALS: BP 148/90
[2019-06-16] MEDS ORDERED: Furosemide TAB* 20 MG PO SCH (09:00)
[2019-06-16] MEDS ORDERED: Metoprolol Tartrate TAB* 25 MG PO SCH (09:00)
[2019-06-16] MEDS ORDERED: amLODIPine TAB* 5 MG PO SCH (09:00)
[2019-06-16] MEDS ORDERED: Pneumococcal *Vac Polyvalent 0.5 ML VIAL IM ONE (09:00)
[2019-06-16] MEDS: Azithromycin 500 mg/250 ml NS 500 MG/250 ML BAG IVPB SCH (12:06)
--- NOTE | 2019-06-16 22:12 | DS ---
CC: [facility] * DISCHARGE SUMMARY: DATE OF ADMISSION: 06/15/19 DATE OF DISCHARGE: 06/16/19 PRIMARY CARE PROVIDER: Destiney Recio. ATTENDING PHYSICIAN: Dr. Oconnell * (dictated by Alicia Zuniga NP) PRIMARY DIAGNOSES: 1. Shortness of breath. 2. Chronic obstructive pulmonary disease. 3. Noncompliance. 4. Congestive heart failure. 5. Hypertension. 6. Tobacco abuse. SECONDARY DIAGNOSES: 1. Depression. 2. Attention deficit hyperactivity disorder. STUDIES WHILE IN THE HOSPITAL: 1. Chest x-ray: No evidence for active cardiopulmonary disease. 2. EKG: Sinus rhythm. 3. Chest/thorax CTA: No evidence of pulmonary embolism, cardiopulmonary embolic disease in the main, segmental and proximal segment branches. However, the distal segmental pulmonaries are difficult to assess. No pulmonary consolidation. Linear opacities located in lung bases which may represent areas of atelectasis and/or scaring. Ectasia of the ascending aorta with an AP length of 4.[address] follow[address] CT in 6 months to a year. Previous CT study from 09/21/18 shows the AP length of the ascending aorta to measure approximately 4.1 cm. Resolution of left pulmonary effusion and associated areas of atelectasis. 4. Transthoracic echo: Impression: Image: Left ventricle: The cavity size is normal. Wall thickness is mildly increased. Systolic function is decreased. The estimated ejection fraction is 60% to 65%. Right ventricle: Systolic function is normal. All valves showed good function. Tricuspid valve : There is no significant regurgitation, trace. Compared to prior echo on 09/22, ejection fraction is stable, no longer seen right ventricle dilatation and right ventricular function no longer reduced. Prior study showed trace AI, mitral regurgitation, tricuspid regurgitation. Aorta previously mildly dilated. DISCHARGE HOME MEDICATIONS: Continued home medications: 1. Naltrexone 50 mg p.o. daily. 2. Bupropion XL 300 mg p.o. daily. 3. Adderall 30 mg p.o. b.i.d. 4. Amlodipine 10 mg p.o. daily. 5. Metoprolol tartrate 25 mg p.o. b.i.d. 6. Lasix 20 mg p.o. daily. 7. Albuterol HFA inhaler 2 puff inhalations q.4 hours p.r.n. New home medications: 1. Losartan 50 mg p.o. daily. 2. Azithromycin 250 mg p.o. daily x3 days. 3. Prednisone taper. HISTORY OF PRESENT ILLNESS/HOSPITAL COURSE: Mr. Pineda is a 54-year-old male with past medical history significant for CHF, hypertension, depression, ADHD; who presented to the emergency department on 06/14/19 with complaints of shortness of breath x6 weeks. Please see history and physical dictated by Lawrence Montalvo MD for complete summary of events leading up to hospitalization, but in short, the patient presented to the emergency room with the above mentioned complaints and was noted to be hypertensive. The patient admitted that he stopped taking his BP medications as he says they were not working. Given his complaints of shortness of breath, the patient had a CT angiogram and results as mentioned above. The patient also had an EKG which was sinus rhythm at rate of 84. The patient had a troponin while in the emergency department which was unremarkable. Given the patient's complaints of shortness of breath and his elevated blood pressure with the highest reading being in the 200s systolically , he was admitted to the hospital for further evaluation and treatment. While in the hospital, the patient's blood pressure medications were restarted and additional blood pressure medications in the form of losartan was added to his regimen. He was also treated for possible COPD exacerbation, given his significant smoking history of 5 cigars per day. The patient was treated with antibiotics, prednisone, nebulizers. The patient reports improvement in breathing. Given the patient's history of pleural effusion and possibly CHF, a transthoracic echo was ordered, results as above. Today on assessment, the patient reports improvement in breathing. The patient stable for discharge home. REVIEW OF SYSTEMS: The patient reports mild shortness of breath that has improved since admission. He reports it is mostly when sitting or bending over due to abdominal girth. The patient denies cough, fever, chills, chest pain, palpitations. A 14-point review of systems was completed and all others were negative. PHYSICAL EXAMINATION: V ital Signs: Temp 97.7, HR 24, RR 20, O2 saturation 95% on room air, BP 148/90. General: Mr. Pineda is a 54-year-old male who is lying in bed. Appears to be in no acute distress. Appears stated age. HEENT: EOMs intact. Oral mucosa is moist without lesion. Posterior pharynx is clear. Neck: Supple. No lymphadenopathy. Cardiac: S1, S2 present. No murmurs, rubs, or gallops. Regular rate and rhythm. Respiratory: Lungs are clear to auscultation. No wheezes, rhonchi, or rubs. Abdomen: The patient's abdomen is large as he has truncal obesity. The patient 's abdomen is nontender, no rigidity, no rebound tenderness. Bowel sounds were normoactive. Extremities: No edema. No clubbing or cyanosis. Pedal pulses 2+ bilaterally. Musculoskeletal: No pain or deformities. Skin: Grossly intact with no rashes or lesions. Neuro: Grossly intact. No focal deficits or weakness. DIAGNOSTIC STUDIES/LAB DATA: WBC 11.5, hemoglobin 13.5, hematocrit 39, platelets 238,000. Sodium 138, potassium 4.2, chloride 107, carbon dioxide 23, BUN 17, creatinine 0.97, glucose 147. DISCHARGE PLAN/FOLLOWUP: 1. Respiratory failure: As mentioned above, the patient experienced shortness of breath while in the emergency room, therefore was admitted for evaluation and treatment. The patient never required supplemental O2. The patient has received steroids, nebulizer, azithromycin. The patient has improved. The patient had the CTA which was unremarkable for pulmonary disease. The patient had an echo which was unremarkable. I have recommended that the patient continue his azithromycin. I sent the patient with a prescription for azithromycin and prednisone. I have instructed the patient to stop smoking. I have also referred the patient back to Dr. Palacio who he had seen previously for possible PFTs. 2. Hypertensive urgency. As mentioned above, the patient's blood pressure was systolically as high as 200 in the emergency department. He admitted to not taking the blood pressure medications. The patient was restarted on blood pressure medication with the addition of losartan. The patient's blood pressure is now 146 systolically. I have discussed at length the risks of untreated hypertension and the patient states understanding. The patient will be referred to [facility] for followup. 3. Ascending aorta dilatation. The patient has dilatation of the ascending aorta on the CT scan. The patient needs a repeat CT in 6 months. I will defer this to the patient's primary care or [facility] to refer him for this followup. 4. Heart failure. The patient is currently not in heart failure. The patient should continue his home medications the same. 5. Depression. The patient should continue his medications the same. 6. Attention deficit hyperactivity disorder: Patient should continue his Ritalin. 7. Followup: The patient is referred to [facility] for followup next week. The patient has also been referred to Dr. Palacio. It should be mentioned that the patient was referred to [facility] on the previous admission, but did not attend his appointment. The patient also followed up with Dr. Palacio after his previous admission and made 1 followup but did not follow through with his pulmonary testing. I would recommend that the patient see Dr. Palacio within the next month for possible PFTs and further pulmonary evaluation. 8. Education: The patient was educated on signs and symptoms of new or worsening conditions and when to return to the emergency department. The patient stated understanding. This is a summarized report of a complex medical history and hospital stay. For further details, please see the entire medical record. TIME SPENT: Approximately 35 minutes were spent on this discharge, greater than half that time was spent [id number] with the patient discussing discharge plans and instructions. This plan was discussed with my attending, Dr. Oconnell, who is in agreement with my plan of care. Reviewed by ALICIA ZUNIGA NP 06/26/19 @ [id number]/CPS #: [id number] AMANDA
== END 2019-06-16 15:00 | disposition home or self-care (01) | DRG 189 ==
LOC: ED 16:23 → UNDOADMOB 06-15 06:50 → OBSVTOIN 06-15 06:50 → MED 06-15 06:50 → INTOOBSV 06-15 06:50 → MED 06-15 06:50 → OBSVTOIN 06-15 12:00 → INTOOBSV 06-15 12:00 → OBSVTOIN 06-16 12:00 → UNDODISOB 06-16 15:00
PROVIDERS: ADMIT Hospitalist; ATTEND Internal Medicine
DX: J96.90 Respiratory failure, unspecified, unspecified whether with hypoxia or hypercapnia (principal); J44.1 Chronic obstructive pulmonary disease with (acute) exacerbation; I11.0 Hypertensive heart disease with heart failure; I16.0 Hypertensive urgency; I10 Essential (primary) hypertension; I77.819 Aortic ectasia, unspecified site; I50.9 Heart failure, unspecified; F32.9 Major depressive disorder, single episode, unspecified; F90.9 Attention-deficit hyperactivity disorder, unspecified type; F17.290 Nicotine dependence, other tobacco product, uncomplicated; E66.9 Obesity, unspecified; Z91.14 Patient's other noncompliance with medication regimen; Z68.35 Body mass index [BMI] 35.0-35.9, adult
CPT/HCPCS: 36415; 71046; 71275; 80048; 80053; 80307; 83605; 83880; 84484; 85025; 86140; 87040; 90732; 93005; 93306; 94660; 99284; A9270-GY; C8929; J0360; J0456; J2920; J7512; Q9967

== ENCOUNTER 2019-07-30 23:11 | Emergency (ER) | payer SELFPAY ==
[2019-07-30] MEDS ORDERED: diPHENhydraMINE IV* 50 MG/ML 1 ml VIAL (BENADRYL) IM ONE (23:21)
[2019-07-30] MEDS ORDERED: Haloperidol INJ IV/IM* 5 MG/ML AMP IM ONE (23:21)
[2019-07-30] MEDS ORDERED: LORazepam INJ* 2 MG/ML 1 ML VIAL IM ONE (23:21)
[2019-07-30] MEDS ORDERED: Lorazepam PYXIS KEY ONE (23:29)
[2019-07-30] MEDS ORDERED: LORazepam INJ* 2 MG/ML 1 ML VIAL ONE (23:30)
--- NOTE | 2019-07-30 23:32 | ED ---
Substance Abuse/Use - HPI Summary HPI Summary: Pt is a 54 y/o M presenting to the ED brought in by EMS and [place] [employer] on a 2208. LEVEL 5 CAVEAT: Pts full hx and physical limited d/t intoxication. The pt was found by [place] [employer] by the old [employer] [place], unconscious and surrounded by liquor bottles. He did not know how he got there, or where he was, and was very combative with the police. - History Of Current Complaint Chief Complaint: EDSubstanceAbuse Stated Complaint: 2208 PER EMS Time Seen by Provider: 07/30/19 23:19 Hx Obtained From: EMS, Other: - [employer] Hx From Patient Unobtainable Due To: Other - intoxication Onset/Duration of Drug/ETOH Abuse: Hours Overdose Characteristics: Oral Timing Of Abuse: Binge Use Severity Initially: Moderate Severity Currently: Moderate Character: Angry, Stuporous Aggravating Factor(s): Nothing Alleviating Factor(s): Nothing Associated Signs And Symptoms: Agitated - Allergies/Home Medications Allergies/Adverse Reactions: Allergies Allergy/AdvReac Type Severity Reaction Status Date / Time No Known Allergies Allergy Verified 07/30/19 23:20 PMH/Surg Hx/FS Hx/Imm Hx Previously Healthy: No - LEVEL 5 CAVEAT: intoxication Endocrine/Hematology History: Denies: Hx Diabetes Cardiovascular History: Reports: Hx Congestive Heart Failure, Hx Hypertension Respiratory History: Reports: Hx Pneumonia Denies: Hx Asthma, Hx Chronic Obstructive Pulmonary Disease (COPD) History: Denies: Hx Renal Disease Sensory History: Reports: Hx Contacts or Glasses - reading Denies: Hx Deafness, Hx Hearing Aid, Hx Hearing Problem Opthamlomology History: Reports: Hx Contacts or Glasses - reading Neurological History: Denies: Hx Dementia Psychiatric History: Reports: Hx Attention Deficit Hyperactivity Disorder Denies: Hx Autism Infectious Disease History: Unable to Obtain/Confirm Infectious Disease History: Denies: Traveled Outside the [place] in Last 30 Days - Family History Known Family History: Negative: Cardiac Disease, Hypertension, Diabetes - Social History Alcohol Use: Weekly Alcohol Amount: 6 beers per week Substance Use Type: Reports: None Smoking Status (MU): Former Smoker Type: Cigars Amount Used/How Often: a few cigars/ day Length of Time of Smoking/Using Tobacco: 7 years Have You Smoked in the Last Year: Yes Review of Systems - ROS Summary Review of Systems Summary: LEVEL 5 CAVEAT: Full hx and physical unobtainable d/t intoxication. All Other Systems Reviewed And Are Negative: No Physical Exam - Summary Physical Exam Summary: Appearance: Intoxicated appearing obese man talking interminably but not answering questions or following commands. Skin: Warm, dry, no obvious rash Eyes: sclera anicteric, no conjunctival pallor ENT: mucous membranes moist, pharynx appears normal Neck: Supple, nontender Respiratory: Clear to auscultation, no signs of respiratory distress Cardiovascular: Normal S1, S2. No murmurs. Normal distal pulses in tibial and radial bilaterally. Abdomen: Soft, nontender, normal active bowel sounds present Musculoskeletal: No obvious signs of trauma, Strength/ROM Intact Neurological: Awake and alert, not answering questions appropriately Psychiatric: Pt is intoxicated Triage Information Reviewed: Yes Vital Signs On Initial Exam: Initial Vitals Temp Pulse Resp BP Pulse Ox 97.1 F 81 22 152/107 98 07/30/19 23:19 07/30/19 23:19 07/30/19 23:19 07/30/19 23:19 07/30/19 23:19 Vital Signs Reviewed: Yes Completion Of Physical Exam Limited Due To: Level 5 Diagnostics - Vital Signs Vital Signs Temp Pulse Resp BP Pulse Ox 07/30/19 23:19 97.1 F 81 22 152/107 98 - Laboratory Lab Statement: Any lab studies that have been ordered have been reviewed, and results considered in the medical decision making process. Course/Dx - Course Course Of Treatment: Pt is a 54 y/o M presenting to the ED brought in by EMS and [place] [employer] on a 2209. LEVEL 5 CAVEAT: Pts full hx and physical limited d/t intoxication. The pt was found by [place] [employer] by the old [employer] [place], unconscious and surrounded by liquor bottles. He did not know how he got there, or where he was, and was very combative with the police. On exam, the pt is intoxicated, obese, unable to answer questions appropriately, but is awake and alert. In the ED course, he was restrained d/t hostility and aggressive behaviors. He was given 2mg Lorazepam, 50mg Benadryl, and 10mg Haloperidol. Upon sobriety and waking up, pt will be d/c'ed with dx of alcohol intoxication. - Diagnoses Provider Diagnoses: Alcohol intoxication Discharge ED - Sign-Out/Discharge Documenting (check all that apply): Patient Departure Patient Received Moderate/Deep Sedation with Procedure: No - Discharge Plan Condition: Improved Disposition: HOME Patient Education Materials: Alcohol Intoxication (ED) Referrals: [facility] [Outside] Max MURPHY,Elder Hwang [Primary Care Provider] - - Billing Disposition and Condition Condition: IMPROVED Disposition: Home - Attestation Statements Document Initiated by Scribe: Yes Documenting Scribe: Nata Coronel Provider For Whom Myriam is Documenting (Include Credential): Uzair West MD. Scribe Attestation: Nata Thompson scribed for Uzair West MD. on 08/01/19 at 0515. Scribe Documentation Reviewed: Yes Provider Attestation: The documentation as recorded by the Nata lovelace accurately reflects the service I personally performed and the decisions made by Uzair reardon MD. Status of Scribe Document: Viewed
--- NOTE | 2019-07-31 09:42 | ED ---
Progress - Progress Note Progress Note: This pt is a sign out to Dr. Balbuena from Dr. West at shift change 0700 07/31/19 pending sobriety. Re-Evaluation - Re-Evaluation First Eval Re-Evaluation Time: 10:15 Change: Improved Comment: Pt was aroused and walked. He is clinically sober and will be discharged with the previous discharge plan from Dr. West. Course/Dx - Course Course Of Treatment: This pt is a sign out to Dr. Balbuena from Dr. West at shift change 0700 07/31/19 pending sobriety. - Diagnoses Provider Diagnoses: Alcohol intoxication Discharge ED - Sign-Out/Discharge Documenting (check all that apply): Patient Departure Patient Received Moderate/Deep Sedation with Procedure: No - Discharge Plan Condition: Improved Disposition: HOME Patient Education Materials: Alcohol Intoxication (ED) Referrals: [facility] [Outside] Max MURPHY,Elder Hwang [Primary Care Provider] - - Billing Disposition and Condition Condition: IMPROVED Disposition: Home - Attestation Statements Document Initiated by Myriam: Yes Documenting Scribe: Candelario Venegas Provider For Whom Myriam is Documenting (Include Credential): Uzair Balbuena MD Scribe Attestation: Candelario Thompson, scribed for Uzair Balbuena MD on 07/31/19 at 1101. Scribe Documentation Reviewed: Yes Provider Attestation: The documentation as recorded by the Candelario lovelace accurately reflects the service I personally performed and the decisions made by me, Uzair Balbuena MD Status of Scribe Document: Viewed
[2019-07-31 10:35] VITALS: BP 145/109
== END 2019-07-31 10:38 | disposition home or self-care (01) ==
LOC: ED 23:11
DX: F10.129 Alcohol abuse with intoxication, unspecified (principal); Z87.891 Personal history of nicotine dependence; I50.9 Heart failure, unspecified; I10 Essential (primary) hypertension; F90.9 Attention-deficit hyperactivity disorder, unspecified type
CPT/HCPCS: 96372; 99285; J1200; J1630; J2060

== ENCOUNTER 2023-04-29 12:10 | Observation (INO) ==
[2023-04-29] MEDS ORDERED: Labetalol IV 5 MG/ML 20 ml VIAL IV PUSH ONE ×3 (12:26→12:48)
[2023-04-29 12:48] LABS: ABS Eosinophils 0.2 10^3/uL (0.0-0.5); ABS Monocytes 0.6 10^3/uL (0.0-1.1); ABS Neutrophils 5.2 10^3/uL (1.5-7.6); ABS Nucleated RBC 0.02 10^3/ul; Eosinophil % 2.3 %; Hematocrit 49.8 % (38-53); Hemoglobin 16.6 g/dL (13.2-16.3); Lymphocyte % 13.8 %; Mean Corpuscular Hemoglobin 32.7 pg (27-33); Mean Corpuscular Hgb Conc 33.4 g/dL (31-36); Mean Corpuscular Volume 97.8 fL (80-97); Mean Platelet Volume 8.3 fL (7.5-11.2); Nucleated Red Blood Cells % 0.3 /100 WBC (0.0-0.4); Platelet Count 257 10^3/uL (150-450); Red Blood Count 5.09 10^6/uL (4.06-5.63); Red Cell Distribution Width 15.3 % (12-17); White Blood Count 6.9 10^3/uL (3.6-10.2)
[2023-04-29] MEDS ORDERED: Albuterol/Ipratropium NEB.SOL (2.5/0.5 MG) 3 ML NEB.SOLN INH ONE (12:49)
[2023-04-29 13:02] LABS: High Sens Troponin Baseline 26 pg/mL (<20)
[2023-04-29 13:23] LABS: ALT 27 U/L (7-52); AST 23 U/L (13-39); Albumin 4.3 g/dL (3.2-5.2); Albumin/Globulin Ratio 1.6 (1-3); Alkaline Phosphatase 68 U/L (35-149); Anion Gap 9 mmol/L (2-16); Blood Urea Nitrogen 25 mg/dL (6-24); CO2 Carbon Dioxide 28 mmol/L (22-32); Calcium 8.9 mg/dL (8.6-10.3); Chloride 103 mmol/L (101-111); Creatinine, Serum 1.52 mg/dL (0.67-1.17); Globulin 2.7 g/dL (2-4); Glucose 84 mg/dL (70-100); Magnesium 1.9 mg/dL (1.9-2.7); Potassium 4.3 mmol/L (3.5-5.0); Sodium 140 mmol/L (135-145); eGFR CKD-EPI 52.1 (>60)
[2023-04-29] MEDS ORDERED: Azithromycin 500 mg/250 ml NS 500 MG/250 ML BAG IVPB ONE (13:37)
[2023-04-29 13:56] LABS: High Sensitivity Troponin 1 Hr 26 pg/mL (<20)
[2023-04-29] MEDS ORDERED: Al Hydrox/Mg Hydrox/Simet LIQ 30 ML UDC PO PRN (14:29)
[2023-04-29] MEDS ORDERED: Albuterol/Ipratropium NEB.SOL (2.5/0.5 MG) 3 ML NEB.SOLN INH PRN (14:35)
[2023-04-29] MEDS: cefTRIAXone 1 gm/50 mL D5W 1 GM/50 ML BAG IV SCH (15:54)
[2023-04-29] MEDS: Enoxaparin 40 MG/0.4 ML SYR SUBCUT SCH (15:54)
[2023-04-29] MEDS ORDERED: Magnesium Sulfate 2 gm BAG 2 GM/50 ML BAG IVPB ONE (16:45)
[2023-04-29 16:47] LABS: Alcohol, S < 13 mg/dL (<13)
[2023-04-30 05:59] LABS: ABS Lymphocytes 0.4 10^3/uL (1.0-4.8); ABS Monocytes 0.2 10^3/uL (0.0-1.1); ABS Neutrophils 6.3 10^3/uL (1.5-7.6); Eosinophil % 0.1 %; Hematocrit 47.6 % (38-53); Lymphocyte % 6.3 %; Mean Corpuscular Hgb Conc 33.6 g/dL (31-36); Mean Corpuscular Volume 98.2 fL (80-97); Mean Platelet Volume 8.2 fL (7.5-11.2); Platelet Count 243 10^3/uL (150-450); Red Blood Count 4.85 10^6/uL (4.06-5.63); Red Cell Distribution Width 15.3 % (12-17)
[2023-04-30 06:24] LABS: Calcium 8.7 mg/dL (8.6-10.3); Creatinine, Serum 1.34 mg/dL (0.67-1.17); Magnesium 2.3 mg/dL (1.9-2.7); Potassium 4.7 mmol/L (3.5-5.0); eGFR CKD-EPI 60.6 (>60)
[2023-04-30] MEDS ORDERED: Sulfur Hexaflouride MICROSPHR 25 MG VIAL ONE (08:04)
[2023-04-30 13:13] LABS: C Reactive Protein 11.68 mg/L (<8.01)
[2023-04-30] MEDS ORDERED: Azithromycin 500 mg/250 ml NS 500 MG/250 ML BAG IVPB SCH (14:00)
[2023-04-30 15:01] VITALS: BP 143/80
[2023-04-30] MEDS: cefTRIAXone 1 gm/50 mL D5W 1 GM/50 ML BAG IV SCH (15:47)
[2023-04-30] MEDS: Enoxaparin 40 MG/0.4 ML SYR SUBCUT SCH (15:49)
== END 2023-04-30 18:05 | disposition home or self-care (01) ==
LOC: EDHOLD 12:10 → ED 12:10 → MEDTELE 16:28
PROVIDERS: ADMIT Internal Medicine; ATTEND Internal Medicine

== ENCOUNTER 2023-12-04 12:32 | Observation (INO) ==
[2023-12-04] MEDS ORDERED: Morphine 2 MG/ML SYRINGE IV ONE (14:10)
[2023-12-04] MEDS ORDERED: Vancomycin 1,250 MG in NS 0.9% 250 ml 250 ML IVPB ONE (14:12)
[2023-12-04] MEDS ORDERED: Furosemide 40 mg/4 ml IV VIAL IV SLOW PU ONE (14:12)
[2023-12-04] MEDS ORDERED: Piperacillin/Tazobac 3.375 BAG 3.375 GM/100 ML BAG IV ONE (14:13)
[2023-12-04 16:24] LABS: ABS Basophils 0.1 10^3/uL (0.0-0.1); ABS Eosinophils 0.2 10^3/uL (0.0-0.5); ABS Lymphocytes 0.9 10^3/uL (1.0-4.8); ABS Monocytes 0.7 10^3/uL (0.0-1.1); ABS Neutrophils 5.2 10^3/uL (1.5-7.6); ABS Nucleated RBC 0.01 10^3/ul; Eosinophil % 3.4 %; Hematocrit 41.1 % (38-53); Lymphocyte % 12.9 %; Mean Corpuscular Hemoglobin 31.7 pg (27-33); Mean Corpuscular Hgb Conc 34.1 g/dL (31-36); Mean Corpuscular Volume 93.1 fL (80-97); Mean Platelet Volume 8.5 fL (7.5-11.2); Nucleated Red Blood Cells % 0.1 %/100WBC (0.0-0.8); Platelet Count 321 10^3/uL (150-450); Red Blood Count 4.42 10^6/uL (4.06-5.63); Red Cell Distribution Width 13.7 % (12-17); White Blood Count 7.1 10^3/uL (3.6-10.2)
[2023-12-04 16:46] LABS: Albumin 4.1 g/dL (3.2-5.2); Albumin/Globulin Ratio 1.2 (1-3); Calcium 8.8 mg/dL (8.6-10.3); Creatinine, Serum 1.51 mg/dL (0.67-1.17); Globulin 3.4 g/dL (2-4); Potassium 3.4 mmol/L (3.5-5.0); Total Bilirubin 0.4 mg/dL (0.2-1.0); Total Protein 7.5 g/dL (6.4-8.9); eGFR CKD-EPI 52.5 (>60)
[2023-12-04] MEDS ORDERED: Iodixanol (CONTRAST) 320 MG/ML 100 ML SDV IV ONE (18:55)
[2023-12-04] MEDS ORDERED: Vancomycin 2,000 MG in NS 0.9% 500 ml BAG 500 ML IVPB ONE (19:00)
[2023-12-04 20:20] LABS: High Sensitivity Troponin 1 Hr 14 pg/mL (<20)
[2023-12-04] MEDS: Enoxaparin 40 MG/0.4 ML SYR SUBCUT SCH (22:14)
[2023-12-04] MEDS ORDERED: Labetalol IV 5 MG/ML 20 ml VIAL IV PUSH PRN (23:14)
[2023-12-05] MEDS ORDERED: Vancomycin per Pharmacy 1 EA NOTE FOLLOW UP SCH (04:00)
[2023-12-05] MEDS ORDERED: Zosyn per Pharmacy NOTE FOLLOW UP SCH (04:00)
[2023-12-05] MEDS ORDERED: ZOSYN 3.375 GM x ONE DOSE over 30 miuntes IV (04:00)
[2023-12-05] MEDS ORDERED: Cefepime ADVAN 1 GM in NS 0.9% 50 ML 50 ML IVPB SCH (08:00)
[2023-12-05] MEDS ORDERED: ZOSYN 3.375 GM Q8H per EXTENDED INFUSION IV SCH (08:00)
[2023-12-05] MEDS ORDERED: Cefepime 1 GM in Dextrose 1 GM/50 ML BAG IV SCH (08:00)
[2023-12-05 08:29] LABS: TSH Ultra Thyroid Stim Horm 2.36 mcIU/mL (0.34-5.60)
[2023-12-05] MEDS ORDERED: Vancomycin 1000 MG in NS 0.9% 250 ML IVPB SCH (09:00)
[2023-12-05] MEDS ORDERED: Potassium Chlor 20 meq TAB.ER PO ONE (10:02)
[2023-12-05] MEDS ORDERED: Furosemide 40 mg/4 ml IV VIAL IV SLOW PU ONE ×2 (10:03→17:53)
[2023-12-05 10:43] LABS: Hematocrit 39.1 % (38-53); Hemoglobin 13.1 g/dL (13.2-16.3); Mean Corpuscular Hemoglobin 31.5 pg (27-33); Mean Corpuscular Hgb Conc 33.5 g/dL (31-36); Mean Corpuscular Volume 93.9 fL (80-97); Mean Platelet Volume 8.5 fL (7.5-11.2); Platelet Count 279 10^3/uL (150-450); Red Blood Count 4.17 10^6/uL (4.06-5.63); Red Cell Distribution Width 13.5 % (12-17); White Blood Count 6.7 10^3/uL (3.6-10.2)
[2023-12-05 10:59] LABS: Calcium 8.3 mg/dL (8.6-10.3); Creatinine, Serum 1.5 mg/dL (0.67-1.17); Magnesium 1.9 mg/dL (1.9-2.7); Potassium 3.2 mmol/L (3.5-5.0)
[2023-12-05] MEDS ORDERED: Potassium Chlor 20 meq TAB.ER PO SCH (13:00)
[2023-12-05 17:13] LABS: Calcium 8.6 mg/dL (8.6-10.3); Creatinine, Serum 1.68 mg/dL (0.67-1.17); Potassium 4.1 mmol/L (3.5-5.0); eGFR CKD-EPI 46.2 (>60)
[2023-12-05 19:52] LABS: C Reactive Protein 101.55 mg/L (<8.01)
[2023-12-05] MEDS: Enoxaparin 40 MG/0.4 ML SYR SUBCUT SCH (20:17)
[2023-12-05] MEDS ORDERED: Senna TAB 8.6 mg TAB PO SCH (21:00)
[2023-12-06 07:18] LABS: ABS Eosinophils 0.2 10^3/uL (0.0-0.5); ABS Lymphocytes 0.7 10^3/uL (1.0-4.8); ABS Monocytes 0.8 10^3/uL (0.0-1.1); ABS Neutrophils 5.3 10^3/uL (1.5-7.6); Eosinophil % 2.7 %; Hematocrit 40.3 % (38-53); Hemoglobin 13.2 g/dL (13.2-16.3); Lymphocyte % 10.4 %; Mean Corpuscular Hgb Conc 32.8 g/dL (31-36); Mean Corpuscular Volume 94.6 fL (80-97); Mean Platelet Volume 8.3 fL (7.5-11.2); Platelet Count 276 10^3/uL (150-450); Red Blood Count 4.26 10^6/uL (4.06-5.63); Red Cell Distribution Width 13.9 % (12-17); White Blood Count 7.1 10^3/uL (3.6-10.2)
[2023-12-06] MEDS ORDERED: Ferric Gluconate IV 250 MG in NS 0.9% 250 ml 200 ML IVPB ONE (07:43)
[2023-12-06 07:45] LABS: Calcium 8.6 mg/dL (8.6-10.3); Creatinine, Serum 1.58 mg/dL (0.67-1.17); Potassium 3.6 mmol/L (3.5-5.0); eGFR CKD-EPI 49.8 (>60)
[2023-12-06 07:59] LABS: Ferritin 91.2 ng/mL (24-336)
[2023-12-06] MEDS ORDERED: Ferric Gluconate IV 250 MG in NS 0.9% 250 ml 200 ML IVPB SCH (08:00)
[2023-12-06] MEDS ORDERED: Polyethylene Glycol 3350 17 GM PACKET PO SCH (08:00)
[2023-12-06] MEDS ORDERED: Vancomycin Trough Check NOTE FOLLOW UP ONE (08:30)
[2023-12-06 10:42] VITALS: BP 160/93
== END 2023-12-06 18:20 | disposition home or self-care (01) ==
LOC: ED 12:32 → EDHOLD 12:32 → SUATTDRO 20:52 → MEDTELE 21:45
PROVIDERS: ADMIT Internal Medicine; ATTEND Hospitalist